=== PATIENT | male | born 1995 | race Caucasian/White ===

== ENCOUNTER → 2016-10-23 | Outpatient (CLI) | payer BC | END | disposition home or self-care (01) | LOC: GMA 13:19 | PROVIDERS: ATTEND Nurse Practitioner Family | DX: Z57.9 Occupational exposure to unspecified risk factor (principal) ==

== ENCOUNTER → 2017-01-27 | Outpatient (CLI) | payer BC | END | disposition home or self-care (01) | LOC: GMA 14:51 | PROVIDERS: ATTEND Physician Assistant | DX: R00.2 Palpitations (principal) ==

== ENCOUNTER → 2018-02-07 | Outpatient (CLI) | payer BC | LOC: GMAJ 18:53 | PROVIDERS: ATTEND Family Medicine | DX: F32.9 Major depressive disorder, single episode, unspecified (principal) ==

== ENCOUNTER → 2018-02-11 | Outpatient (CLI) | payer BC, OTHER ==
--- NOTE | 2018-02-11 16:26 | MRI ---
EXAM DESCRIPTION: Brain w/o Contrast: MRI. CLINICAL HISTORY: G43.009. Migraine without aura, not intractable, without status migrainosus. COMPARISON: MRI scan of the brain without and with gadolinium IV contrast 03/26/2008. TECHNIQUE: Multiplanar, high-field MRI unit, multiple diffusion sequences, multiple conventional sequences without contrast. FINDINGS: Small focal hyperintense FLAIR and T2-weighted signal in the subcortical white matter of the supraventricular left occipital lobe (FLAIR axial sequence, image 18).. There may be a second slightly larger focus in the subcortical white matter of the posterior right frontal lobe at the level of the ventricles (FLAIR sequence, image 16).. These can also represent image averaging from normal structures. No hemorrhage, no cerebral edema, no diffusion restriction.. Normal signal in the bilateral basal ganglia. Normal signal in the brainstem and cerebellar hemispheres. No hemorrhage, no cerebral edema, no diffusion restriction. Concordance of the diffusion and non-diffusion sequences with no diffusion restriction. Cortical sulci, ventricles, and other CSF spaces, and the subdural spaces are normally configured. Again noted is arachnoid cyst anterior to the left temporal lobe abutting the left temporal fossa, stable since the prior study. No new effacement or displacement. No diffusion restriction. No midline shift. No extra-axial hemorrhage. Normal flow signal void in the major vessels of the gambell Vazquez, and the venous sinuses. IACs are symmetric bilaterally. Minimal edema signal in the inferior right mastoid air cells. No mass effect in the bilateral cerebellopontine angles. Pituitary gland occupies most of the sella. Base of the cerebellar tonsils is at the level of the foramen magnum. No significant abnormalities in the. The bony calvarium is intact. IMPRESSION: 1. 2 small foci of hyperintense FLAIR and T2 signal in the posterior right frontal lobe and in the left occipital lobe. Similar lesions can be seen in patients with acute migraines. These may also represent image averaging from adjacent structures of similar signal. Correlate with clinical findings. Consider follow-up MRI scan with gadolinium IV contrast if indicated. No hemorrhage, mass effect, or diffusion restriction. 2. Minimal edema or fluid in the right mastoid air cells. No significant paranasal sinusitis. Stable arachnoid cyst in the anterior left temporal fossa abutting the anterior left temporal lobe. Electronically signed by: Carrillo Hanna MD 02/11/2018 4:25 PM [facility]
== END ==
LOC: MRI 13:52
PROVIDERS: ATTEND Family Medicine
DX: G43.009 Migraine without aura, not intractable, without status migrainosus (principal)

== ENCOUNTER → 2018-07-18 | Outpatient (CLI) | payer BC | LOC: GMAJ 14:41 | PROVIDERS: ATTEND Physician Assistant | DX: Z72.51 High risk heterosexual behavior (principal) ==

== ENCOUNTER → 2019-03-16 | Outpatient (CLI) | payer BC ==
--- NOTE | 2019-03-17 11:41 | US ---
EXAM DESCRIPTION: Abdomen,Complete: Ultrasound. CLINICAL HISTORY: 23 years MaleUNSPEC. ABDOMINAL PAIN COMPARISON: None Available. TECHNIQUE: Transabdominal scanning: grayscale and Doppler modes. FINDINGS: Gallbladder: Normal size. No echogenic mobile gallstones or significant sludge. 4.4 mm echogenic structure on the wall abutting the liver capsular, without acoustic shadowing, and nonmobile. Wall thickness 2.2 mm. No surrounding fluid. Nontender with transducer pressure. Common bile duct: 3.7 mm normal caliber. Liver: Long axis right lobe 18.9 cm. Normal echogenicity with no focal lesions. Physiologic blood flow and caliber of the ducts. Smooth capsule with no ascites. Pancreas: Normal echogenicity of the included segment. Duct not seen.. Abdominal aorta: Normal caliber from the proximal segment to the distal bifurcation. IVC: visualized; normal caliber. Spleen normal echogenicity; long axis measurement is 14.3 cm. Right kidney: 11.1 cm long axis. Normal cortical thickness and echogenicity. No echogenic stones or hydronephrosis. Left kidney: 13.1 cm long axis. Normal cortical thickness and echogenicity. No echogenic stones or hydronephrosis. IMPRESSION: 1. 4.4 mm polyp on the inner gallbladder wall abutting the liver capsule. No stones or significant sludge. Normal wall thickness with no fluid. Nontender with transducer pressure. 2. Mild enlargement of the liver with normal echogenicity. Normal vascularity and caliber of the ducts. Smooth capsule with no ascites. 3. Pancreas and bilateral kidneys unremarkable. Normal caliber of the IVC and abdominal aorta. 4. Borderline enlargement of the spleen, with homogeneous echoes. Electronically signed by: Carrillo Hanna MD 03/17/2019 11:39 AM [facility]
== END ==
LOC: US 09:32
PROVIDERS: ATTEND Internal Medicine Gastroenterology
DX: K82.4 Cholesterolosis of gallbladder (principal); R16.0 Hepatomegaly, not elsewhere classified